=== PATIENT | male | born 1990 | race African-American/Black ===

== ENCOUNTER 2017-11-10 13:58 | Emergency (ER) | payer OTHER ==
[~2017-11-10] VITALS: Ht 182.9 cm; Wt 98.9 kg
[~2017-11-10 13:58] MED LIST: PHENERGAN 25 MG25 M1 PO; PHENERGAN 25 MG25 MG PO; PRILOSEC40 MG PO
[2017-11-10 14:57] LABS: ABSOLUTE NEUTROPHILS 4.4 thou/uL (1.4-8.2); BASOPHILS 1.1 % (0.0-2.0); EOSINOPHILS 1.8 % (0.0-3.0); HEMATOCRIT 44.9 % (42.0-52.0); HEMOGLOBIN 14.9 gm/dL (14.0-18.0); LYMPHOCYTES 27.1 % (24.0-44.0); MCH 27.7 pg (26.0-34.0); MCHC 33.1 g/dL (28.0-37.0); MCV 83.9 fL (80.0-100.0); PLATELET COUNT 278 thou/uL (150-400); RBC 5.36 mil/uL (4.50-6.00); RDW 12.8 % (10.5-14.5); WBC 6.9 thou/uL (4.0-11.0)
[2017-11-10 15:04] LABS: CALCIUM 8.8 mg/dL (8.5-10.1); CREATININE 1.1 mg/dL (0.7-1.3); POTASSIUM 3.5 mmol/L (3.5-5.1)
[2017-11-10 15:30] LABS: URINE BILIRUBIN NEGATIVE (Negative); URINE BLOOD NEGATIVE (Negative); URINE CLARITY CLEAR; URINE COLOR YELLOW; URINE GLUCOSE-RANDOM* NEGATIVE (Negative); URINE KETONES NEGATIVE (Negative); URINE LEUKOCYTES-REFLEX NEGATIVE (Negative); URINE NITRITE-REFLEX NEGATIVE (Negative); URINE PROTEIN (DIPSTICK) NEGATIVE (Negative); URINE SPECIFIC GRAVITY >= 1.030 (1.005-1.035)
[2017-11-10] MEDS ORDERED: IBUPROFEN 600600 M1 PO (16:20)
[2017-11-10] MEDS ORDERED: AUGMENTIN 875-1 EACH PO (16:20)
[2017-11-10] MEDS ORDERED: HYDROCODONE-AP1 EAC6 PO (16:20)
[2017-11-10 16:31] VITALS: BP 125/80
== END 2017-11-10 16:32 | disposition home or self-care (01) ==
LOC: ER 13:58
PROVIDERS: Physician Assistant
DX: L02.215 Cutaneous abscess of perineum (principal); K21.9 Gastro-esophageal reflux disease without esophagitis

== ENCOUNTER 2018-04-16 17:07 | Inpatient (IN) | payer OTHER ==
[~2018-04-16] VITALS: Ht 182.9 cm; Wt 92.4 kg
--- NOTE | ~2018-04-16 | O ---
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 PREOPERATIVE DIAGNOSES: Perineal abscess. POSTOPERATIVE DIAGNOSES: Perineal abscess. PROCEDURES: 1. Incision and drainage of perineal abscess. 2. Rectal exam under anesthesia. ANESTHESIA: General laryngeal mask anesthesia and local anesthetic. ESTIMATED BLOOD LOSS: 5 mL. SPECIMEN: None. COMPLICATIONS: None appreciated. 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 The patient developed perineal pain 3 days ago, progressively worsening with malodorous drainage starting last night. The patient denies fever or chills. This past summer, the patient had an abscess in the same area that resolved with Augmentin. This hospitalization, the patient underwent a CT of the pelvis showing a well-circumscribed somewhat elongated low density fluid collection in the left medial peritoneum caudal to the anus measuring 4.5 x 1.1 x 2.8 cm compatible with a perineal abscess. Mild stranding was seen in the adjacent subcutaneous fat of the left medial buttock suggestive of cellulitis. The patient presents now for incision and drainage with rectal exam under anesthesia. OPERATIVE FINDINGS: The patient's abscess has spontaneously drained through a 5-6 mm circular opening. The abscess cavity was as advertised on the CT scan. Chronic granulation tissue was present. Cultures were obtained. Rectal exam under anesthesia revealed no anal fissures or fistulae. The patient's prostate was normal. At the conclusion of the operation, the sponge, needle, and [address] [address] OPERATIVE REPORT Name: JOON FUENTES DUMFRIES Room #: 424-P [facility] IN ..#: [id number] Admission: 04/16/18 Attend Phys: Vance Howe MD Discharge: 04/17/18 Date of : 89 Report #: [id number] instrument counts were correct. DESCRIPTION OF PROCEDURE IN DETAIL: After the risks, benefits, and expectations of the operation were discussed in detail with the patient, informed consent was obtained. The patient was identified in the preoperative holding area. He has been receiving scheduled IV antibiotics. He was taken to the Operating Room and he was placed in the supine position. SCDs were placed on the patient's bilateral lower extremities and pneumatic compression was initiated. The patient was then given IV sedation and a laryngeal mask was placed without difficulty. The patient was then placed in the dorsal lithotomy position in [facility] cane stirrups. His perineal/perianal area was prepped and draped in the standard sterile fashion. A time-out was performed to identify the correct patient and procedure. Rectal exam under anesthesia was undertaken next. Both manual and visual exam were undertaken using the bilobed retractor. Findings are as noted above. The opening was probed with a hemostat. The skin was then opened over the hemostat to expose the abscess cavity. The cavity was then swabbed for cultures. The chronic granulation tissue was mechanically debrided with a 4 x 4 and a curette. There was no significant bleeding from the cavity. The wound was then irrigated and return of all drainage showed no active arterial bleeding. The wound was packed with half inch iodoform gauze, then dressed with 4 x 4s, tape and mesh briefs. The patient tolerated the procedure well. He was returned to the supine position, awakened, laryngeal mask was removed without difficulty and the patient was taken to recovery room in stable condition with no apparent intraoperative complications. <ELECTRONICALLY SIGNED> By: Edwin Rapp MD, FACS 04/18/18 1530 [id number] Edwin Rapp MD, FACS /nt
[~2018-04-16 17:07] MED LIST changes: +AUGMENTIN 875-1 EACH PO; +HYDROCODONE-AP1 EAC6 PO; +IBUPROFEN 600600 M1 PO
[2018-04-16 17:14] VITALS: BP 131/89
[2018-04-16 17:54] LABS: ABSOLUTE NEUTROPHILS 6.2 thou/uL (1.4-8.2); BASOPHILS 0.8 % (0.0-2.0); EOSINOPHILS 1.3 % (0.0-3.0); HEMATOCRIT 44.1 % (42.0-52.0); HEMOGLOBIN 14.7 gm/dL (14.0-18.0); LYMPHOCYTES 18.5 % (24.0-44.0); MCH 28.1 pg (26.0-34.0); MCHC 33.5 g/dL (28.0-37.0); MCV 84.1 fL (80.0-100.0); MONOCYTES 8.7 % (1.0-8.0); PLATELET COUNT 276 thou/uL (150-400); POLYS 70.7 % (36.0-66.0); RBC 5.24 mil/uL (4.50-6.00); RDW 12.7 % (10.5-14.5); WBC 8.8 thou/uL (4.0-11.0)
[2018-04-16 18:01] LABS: CREATININE 1.1 mg/dL (0.7-1.3); POTASSIUM 4.3 mmol/L (3.5-5.1)
[2018-04-16 18:07] LABS: ALBUMIN 3.9 g/dL (3.4-5.0); TOTAL BILIRUBIN 0.5 mg/dL (<0.1-1.0); TOTAL PROTEIN 8.3 g/dL (6.4-8.2)
[2018-04-16 19:50] VITALS: BP 134/63
[2018-04-16 20:14] VITALS: BP 134/63
[2018-04-16 21:00] VITALS: BP 137/80
[2018-04-16 23:20] LABS: PROTIME 10.3 Seconds (9.3-11.4)
[2018-04-17 04:40] VITALS: BP 125/73
[2018-04-17 08:39] VITALS: BP 132/79
[2018-04-17] MEDS ORDERED: AUGMENTIN 875-1 EACH PO (10:41)
[2018-04-17] MEDS ORDERED: HYDROCODONE-AP1 EAC6 PO (10:41)
[2018-04-17 13:30] VITALS: BP 116/71
[2018-04-17] MEDS ORDERED: NORCO 5-325 TA1 EACH PO (16:05)
[2018-04-17] MEDS ORDERED: BACTRIM DS TAB1 EACH PO (16:05)
[2018-04-17 16:58] VITALS: BP 116/71
[2018-04-17 17:27] VITALS: BP 124/79
== END 2018-04-17 18:15 | disposition home or self-care (01) | DRG 572 ==
LOC: ER 17:07 → EROBS 19:33 → 4E 20:15
PROVIDERS: Nurse Practitioner Acute Care; Physician Assistant
PROC: 0JBB0ZZ Excision of Perineum Subcutaneous Tissue and Fascia, Open Approach (ICD-10-PCS; principal; 2018-04-17)
DX: L02.215 Cutaneous abscess of perineum (principal); K21.9 Gastro-esophageal reflux disease without esophagitis; F12.90 Cannabis use, unspecified, uncomplicated; Z79.899 Other long term (current) drug therapy
CPT/HCPCS: 10084; 50010; 50101; 50386; 62110; 62900; 70005

== ENCOUNTER 2018-11-25 11:35 | Inpatient (IN) | payer OTHER ==
[~2018-11-25] VITALS: Ht 182.9 cm; Wt 90.6 kg
[~2018-11-25 11:35] MED LIST changes: +BACTRIM DS TAB1 EACH PO; +NORCO 5-325 TA1 EACH PO
[2018-11-25 11:36] VITALS: BP 139/85
[2018-11-25 12:17] LABS: ABSOLUTE NEUTROPHILS 6.2 thou/uL (1.4-8.2); BASOPHILS 0.6 % (0.0-2.0); EOSINOPHILS 1.9 % (0.0-3.0); HEMATOCRIT 41.7 % (42.0-52.0); HEMOGLOBIN 13.8 gm/dL (14.0-18.0); LYMPHOCYTES 20.5 % (24.0-44.0); MCH 27.7 pg (26.0-34.0); MCHC 32.9 g/dL (28.0-37.0); MCV 84.1 fL (80.0-100.0); MONOCYTES 7.4 % (1.0-8.0); PLATELET COUNT 245 thou/uL (150-400); POLYS 69.6 % (36.0-66.0); RBC 4.96 mil/uL (4.50-6.00); RDW 12.8 % (10.5-14.5); WBC 8.9 thou/uL (4.0-11.0)
[2018-11-25 12:27] LABS: CALCIUM 8.8 mg/dL (8.5-10.1)
[2018-11-25 12:44] LABS: ALBUMIN 3.7 g/dL (3.4-5.0); TOTAL BILIRUBIN 0.4 mg/dL (<0.1-1.0); TOTAL PROTEIN 7.6 g/dL (6.4-8.2)
[2018-11-25 16:50] VITALS: BP 114/75
[2018-11-25 17:30] VITALS: BP 130/86
[2018-11-25 17:50] VITALS: BP 150/82
--- NOTE | 2018-11-25 18:39 | NUR ---
PT IS ALERT AND ORIENTED X4. COMPLAINS OF AN ABCESS IN SCROTAL AREA WITH FREQUENT REAQURANCES. VS STABLE. LUNGS ARE CLEAR. VOIDS PER URINAL ADMISISION DONE. AND GIRLFRIEND AT BEDSIDE FOR SUPPORT. SCDS ON BILATERAL. REGULAR TRAY GIVEN FOR DINNER. AND NO ISSUES OR CONCERNS AT THIS TIME. ABCESS IS DRAINING SEROUS SANGIOUS FROM SCROTAL AREA NOTED PER NURSING.
[2018-11-25 19:30] VITALS: BP 149/82
--- NOTE | 2018-11-25 20:00 | NUR ---
ASSISTED DR. JIMÉNEZ WITH A BEDSIDE IND. ABSCESS SITE PACKED WITH IODOFORM GAUZE BY DR. JIMÉNEZ. WILL CONTINUE TO MONITOR.
[2018-11-26 04:22] VITALS: BP 138/75
[2018-11-26 05:30] LABS: ABSOLUTE NEUTROPHILS 6.9 thou/uL (1.4-8.2); BASOPHILS 0.7 % (0.0-2.0); EOSINOPHILS 2.6 % (0.0-3.0); HEMATOCRIT 40.3 % (42.0-52.0); HEMOGLOBIN 13.1 gm/dL (14.0-18.0); LYMPHOCYTES 23.7 % (24.0-44.0); MCH 27.2 pg (26.0-34.0); MCHC 32.5 g/dL (28.0-37.0); MCV 83.7 fL (80.0-100.0); MONOCYTES 6.9 % (1.0-8.0); PLATELET COUNT 257 thou/uL (150-400); POLYS 66.1 % (36.0-66.0); RBC 4.81 mil/uL (4.50-6.00); RDW 12.4 % (10.5-14.5); WBC 10.4 thou/uL (4.0-11.0)
[2018-11-26 05:39] LABS: CALCIUM 8.8 mg/dL (8.5-10.1); MAGNESIUM 1.7 mg/dL (1.8-2.4); POTASSIUM 4.5 mmol/L (3.5-5.1)
--- NOTE | 2018-11-26 06:08 | NUR ---
AOX4. RA. DENIES SOA. MEDICATED FOR PAIN RELIEVED. AFEBRILE. GAUZED CHANGED THIS AM FROM LEFT PERINEAL ABSCESS SITE. PT EDUCATED ABOUT CARE. SAFETY PRECAUTIONS IN PLACE. PT CALLS APPROPIATELY. WILL CONTINUE TO MONITOR.
[2018-11-26 07:16] VITALS: BP 134/72
--- NOTE | 2018-11-26 11:50 | NUR ---
Received awake on bed. Due medications given as prescribed. A+Ox4. On room air. Vital signs stable. On regular diet- tolerating well, no nausea, no vomiting, no abdominal pain after eating. Pt with perianal abcess- with packing, with dressing- C/D/I. With SL at L . Pt complained of pain, due medications given as prescribed.
[2018-11-26 13:43] VITALS: BP 136/85
--- NOTE | 2018-11-26 14:31 | NUR ---
PT ADMITTED RELATED TO ABCESS PERINEAL, PAST HISTORY OF RECURRANCE. CM REVIEWED [facility] AND SPOKE WITH CARE TEAM. CM MET WITH PT AT BEDSIDE THIS DAY. PT IA W&0 X4. CM ROLELE INTRODUCED. PT INDICATED THAT HE LIVES IN AN APARTMENT WTIH HIS SIG OTHER AND KIDS. PT INDICATED HE HAD BEEN INDEOPEDENET WTIH GAIT AND ADLS IN THE PAST. PT INDIATED NO DME IR HH HX. PT INDICATED HE PLANS TO RETURN HOME ONCEMEDICALLY STABLE. CM TO [facility] INDICATED WITH DC PLANNING.
[2018-11-26 19:24] VITALS: BP 141/84
[2018-11-27 04:04] VITALS: BP 114/79
[2018-11-27 07:33] VITALS: BP 121/87
--- NOTE | 2018-11-27 08:04 | NUR ---
Assumed care at 1845. Pt resting in bed. Family at bedside. AOX4. VSS. Up at musa. Dressing on perineal area CDI. Routinely gave pain medications. No identified needs at the moment. Call light within reach. Will continue to monitor.
--- NOTE | 2018-11-27 12:50 | NUR ---
TOWARDS POC PT A/O X4, VSS, AFEBRILE. PAIN MANAGED BY MEDS. WOUND CARE AND DRESSING DONE. PT IS ANTICIPATING DC TODAY. WILL CONTINUE TO MONITOR.
[2018-11-27] MEDS ORDERED: HYDROCODON-ACE1 EAC7 PO (13:26)
[2018-11-27] MEDS ORDERED: ZOFRAN4 MG PO (13:26)
[2018-11-27] MEDS ORDERED: AUGMENTIN 875-1 EACH PO (13:27)
[2018-11-27 14:06] VITALS: BP 121/87
--- NOTE | 2018-11-27 14:12 | NUR ---
CARE TEAM INDICATED THAT PT IS MEDICALLY STABLE TO DC HOME THIS DAY. PT IS TO DC HOME THIS DAY. NO OTHER CM INTERVENTION INDICATED. CASE CLOSED.
== END 2018-11-27 15:10 | disposition home or self-care (01) | DRG 349 ==
LOC: ER 11:35 → EROBS 14:21 → 4W 14:21
PROVIDERS: Emergency Medicine; Nurse Practitioner; ADMIT Hospitalist
PROC: 0D9Q0ZZ Drainage of Anus, Open Approach (ICD-10-PCS; principal; 2018-11-25)
DX: K61.0 Anal abscess (principal); K21.9 Gastro-esophageal reflux disease without esophagitis; F12.90 Cannabis use, unspecified, uncomplicated; Z71.51 Drug abuse counseling and surveillance of drug abuser; Z79.899 Other long term (current) drug therapy
CPT/HCPCS: 10040